=== PATIENT | female | born 1960 | race Caucasian/White ===

== ENCOUNTER 2016-09-25 20:27 | Emergency (ER) | payer OTHER ==
[~2016-09-25 20:27] MED LIST: Z.0.NO CURRENT MEDS
[2016-09-25 20:29] VITALS: BP 146/70; PULSE 110; RESP 18; TEMP 98.8; O2SAT 98
== END 2016-09-25 21:03 | disposition left against medical advice (07) ==
LOC: NED 20:27
DX: M54.2 Cervicalgia (principal)
CPT/HCPCS: 99281